=== PATIENT | female | born 2000 | race Caucasian/White ===

== ENCOUNTER 2023-07-13 11:01 | Day surgery (SDC) | payer OTHER ==
[2023-07-13 11:27] VITALS: BMI 31.3
[2023-07-13] MEDS ORDERED: hydrALAZINE 20 MG/ML VIAL SLOW IVP PRN (12:19)
== END 2023-07-13 14:40 | disposition home or self-care (01) ==
LOC: CSHLD/OP 11:01
PROVIDERS: ATTEND Family Medicine
DX: O36.8130 Decreased fetal movements, third trimester, not applicable or unspecified (principal); O99.013 Anemia complicating pregnancy, third trimester; D64.9 Anemia, unspecified; O99.513 Diseases of the respiratory system complicating pregnancy, third trimester; J45.909 Unspecified asthma, uncomplicated; J30.2 Other seasonal allergic rhinitis; Z79.51 Long term (current) use of inhaled steroids; Z79.899 Other long term (current) drug therapy; Z3A.37 37 weeks gestation of pregnancy
CPT/HCPCS: 76819

== ENCOUNTER 2023-07-18 14:50 | Inpatient (IN) | payer OTHER ==
[~2023-07-18 14:50] MED LIST: Bupivacaine 0.25% HCL 30 ML VIAL ONE
[2023-07-18 15:45] LABS: Fetal Membranes Rupture RUPTURE DETECTED (No Rupture)
[2023-07-18] MEDS ORDERED: Lidocaine 1% (PF) 30 ML VIAL SC PRN (16:41)
[2023-07-18] MEDS ORDERED: Promethazine HCl 25 MG/ML VIAL IM PRN (16:41)
[2023-07-18] MEDS ORDERED: Ondansetron PF 4 MG/2 ML Vial IVP PRN (16:41)
[2023-07-18] MEDS ORDERED: hydrALAZINE 20 MG/ML VIAL SLOW IVP PRN (16:41)
[2023-07-18] MEDS ORDERED: Oxytocin 30 units/NS 500 ML 500 ML IV SCH ×2 (16:45→17:00)
[2023-07-18] MEDS ORDERED: Methylergonovine 0.2 MG/ML VIAL IM PRN (16:47)
[2023-07-18] MEDS ORDERED: Ibuprofen 800 MG TAB PO PRN (16:47)
[2023-07-18] MEDS ORDERED: fentaNYL 50 mcg/mL 1 mL Vial SLOW IVP PRN (16:47)
[2023-07-18] MEDS ORDERED: Acetaminophen 500 MG TAB PO PRN (16:47)
[2023-07-18] MEDS ORDERED: Tranexamic Acid 1,000 MG/10 ML VIAL IVP PRN (16:47)
[2023-07-18] MEDS ORDERED: Misoprostol 200 MCG TAB PR PRN (16:47)
[2023-07-18] MEDS ORDERED: Lactated Ringer's 1,000 ML IV SCH (17:00)
[2023-07-18] MEDS: Misoprostol 100 MCG TAB PO SCH (17:51)
[2023-07-18 18:17] LABS: Hematocrit 34.8 % (34.9-44.5); Hemoglobin 12.3 g/dL (12.0-15.5); Mean Corpuscular HGB CONC 35.3 g/dL (32.0-36.0); Mean Corpuscular Hemoglobin 31.3 pg (27.0-33.0); Mean Corpuscular Volume 88.5 fl (81.6-98.3); Mean Platelet Volume 8.9 fl (7.4-10.4); Platelet Count 240 10x3/uL (150-450); RBC Distribution Width 12.2 % (11.5-14.5); Red Blood Cell (RBC) Count 3.93 10x6/uL (3.90-5.03); White Blood Cell (WBC) Count 7.7 10x3/uL (3.5-10.5)
[2023-07-18 18:42] LABS: HBSAg Index 0.16 S/CO (0-0.99); Hep B Surf Ag - L&D Non-Reactive S/CO (NonReactive)
[2023-07-18 18:43] LABS: Syphilis Antibody Nonreactive (Nonreactive); Syphilis Antibody Index 0.04 S/CO (<1.00 Non-Reactive)
[2023-07-18 18:50] VITALS: BMI 31.6
[2023-07-18] MEDS ORDERED: hydrOXYzine 25 MG TAB PO SCH (23:15)
[2023-07-19] MEDS ORDERED: fentaNYL/Ropivacaine Epidural 100 ML ONE (01:06)
[2023-07-19] MEDS ORDERED: Promethazine HCl 25 MG/ML VIAL IM PRN ×2 (01:51→13:04)
[2023-07-19] MEDS ORDERED: ePHEDrine Sulfate 50 MG/10 ML VIAL SLOW IVP PRN (01:51)
[2023-07-19] MEDS ORDERED: Naloxone HCl 0.4 mg/ml Vial IVP PRN ×2 (01:51)
[2023-07-19] MEDS ORDERED: Acetaminophen 325 MG TAB PO PRN (01:51)
[2023-07-19] MEDS ORDERED: Moisturizing Cream (Eucerin) 113 GM JAR TOP PRN (01:51)
[2023-07-19] MEDS ORDERED: Lactated Ringer's 500 ML IV PRN (01:51)
[2023-07-19] MEDS ORDERED: diphenhydrAMINE 50 MG/ML VIAL IVP PRN (01:51)
[2023-07-19] MEDS ORDERED: Ondansetron PF 4 MG/2 ML Vial IVP PRN ×2 (01:51→13:04)
[2023-07-19] MEDS ORDERED: Communication Order-Pharmacy FS SCH (02:00)
[2023-07-19] MEDS ORDERED: fentaNYL 2 mcg/Ropivacaine 0.2% Epidural 100 ML CADD EPIDURAL SCH (02:00)
[2023-07-19] MEDS ORDERED: Boostrix 0.5 ML (Tdap) VIAL (>/=7 yrs of age) IM ONE (13:04)
[2023-07-19] MEDS ORDERED: Oxytocin 30 units/NS 500 ML 500 ML IV SCH (13:04)
[2023-07-19] MEDS ORDERED: Milk Of Magnesia 30 ML UDCUP PO PRN (13:04)
[2023-07-19] MEDS ORDERED: Acetaminophen 500 MG TAB PO PRN (13:04)
[2023-07-19] MEDS ORDERED: Preparation H Ointment 28 GM TUBE PR PRN (13:04)
[2023-07-19] MEDS ORDERED: Bisacodyl 10 MG SUPP PR PRN (13:04)
[2023-07-19] MEDS ORDERED: HYDROcodone/Acetaminophen 5/325 mg Tablet PO PRN (13:04)
[2023-07-19] MEDS ORDERED: Benzocaine-Menthol 82.5 ML CAN TOP PRN (13:04)
[2023-07-19] MEDS ORDERED: diphenhydrAMINE 25 MG CAP PO PRN (13:04)
[2023-07-19] MEDS ORDERED: Lanolin Ointment 7 GM TUBE TOP PRN (13:04)
[2023-07-19] MEDS ORDERED: hydrALAZINE 20 MG/ML VIAL SLOW IVP PRN (13:04)
[2023-07-19] MEDS: Misoprostol 100 MCG TAB PO SCH ×2 (13:09→13:10)
[2023-07-19] MEDS: Ibuprofen 800 MG TAB PO SCH ×2 (13:31→21:27)
[2023-07-19] MEDS: Ferrous Sulfate 325 MG TAB PO SCH (18:24)
[2023-07-19] MEDS: Docusate 100 MG CAP PO SCH (21:27)
[2023-07-20] MEDS: Ibuprofen 800 MG TAB PO SCH ×3 (05:10→21:01)
[2023-07-20] MEDS: Ferrous Sulfate 325 MG TAB PO SCH ×2 (07:38→16:44)
[2023-07-20] MEDS: Prenatal Vitamin 1 TAB PO SCH (07:48)
[2023-07-20] MEDS: Docusate 100 MG CAP PO SCH ×2 (07:48→21:01)
[2023-07-20 16:44] VITALS: TEMP 97.7
[2023-07-20] MEDS ORDERED: valACYclovir 500 MG TAB PO SCH (17:00)
[2023-07-21] MEDS: Ibuprofen 800 MG TAB PO SCH (05:56)
[2023-07-21] MEDS: Ferrous Sulfate 325 MG TAB PO SCH (08:17)
[2023-07-21] MEDS: Docusate 100 MG CAP PO SCH (08:21)
[2023-07-21] MEDS: Prenatal Vitamin 1 TAB PO SCH (08:21)
[2023-07-21 08:48] VITALS: BP 113/60
== END 2023-07-21 11:30 | disposition home or self-care (01) | DRG 806 ==
LOC: CSHLD/OP 14:50 → CSHLD 16:09 → CSHPP 07-19 12:43
PROVIDERS: ADMIT Family Medicine; ATTEND Family Medicine
PROC: 10E0XZZ Delivery of Products of Conception, External Approach (ICD-10-PCS; principal; 2023-07-19)
PROC: 0KQM0ZZ Repair Perineum Muscle, Open Approach (ICD-10-PCS; 2023-07-19)
DX: O42.02 Full-term premature rupture of membranes, onset of labor within 24 hours of rupture (principal); O98.52 Other viral diseases complicating childbirth; Z37.0 Single live birth; O70.1 Second degree perineal laceration during delivery; Z3A.38 38 weeks gestation of pregnancy; B00.9 Herpesviral infection, unspecified; O99.013 Anemia complicating pregnancy, third trimester; D64.9 Anemia, unspecified
CPT/HCPCS: 36415; 51702; 84112; 85027; 86780; 86850; 86900; 86901; 87340; 99285; J0665; J2210; J2405; J2590; J3010